=== PATIENT | female | born 1945 | race Caucasian/White ===

== ENCOUNTER 2021-11-20 07:07 | Observation (INO) ==
[2021-11-20] MEDS ORDERED: Lactated Ringers 1000 ml BAG 1,000 ML IV ONE (07:22)
[2021-11-20] MEDS ORDERED: Ondansetron 4 mg VIAL 2 MG/ML 2 ml VIAL IV ONE ×2 (07:23→10:22)
[2021-11-20 08:10] LABS: ABS Basophils 0.1 10^3/ul (0-0.2); ABS Eosinophils 0.2 10^3/ul (0-0.6); ABS Lymphocytes 1.1 10^3/ul (1.0-4.8); ABS Monocytes 0.9 10^3/ul (0-0.8); ABS Neutrophils 6.8 10^3/ul (1.5-7.7); Eosinophil % 1.8 %; Hematocrit 36 % (35-47); Hemoglobin 12.1 g/dL (12.0-16.0); Mean Corpuscular HGB Conc 34 g/dL (31-36); Mean Corpuscular Hemoglobin 30 pg (27-31); Mean Corpuscular Volume 88 fL (80-97); Mean Platelet Volume 7.4 fL (7.4-10.4); Platelet Count 213 10^3/uL (150-450); Red Cell Distribution Width 13 % (10-15)
[2021-11-20 08:48] LABS: Calcium 9.2 mg/dL (8.6-10.3); Magnesium 1.5 mg/dL (1.9-2.7); Potassium 3.7 mmol/L (3.5-5.0); eGFR CKD-EPI 88.1 (>60)
[2021-11-20] MEDS ORDERED: Iohexol 350 (CONTRAST) 500 ML MDV IV ONE (09:01)
[2021-11-20] MEDS ORDERED: Magnesium Sulfate 2 gm BAG 2 GM/50 ML BAG IVPB ONE (09:18)
[2021-11-20] MEDS ORDERED: Metoclopramide 5 MG/ML VIAL (10 mg) IV ONE (11:57)
[2021-11-20] MEDS: Metoclopramide 5 MG/ML VIAL (10 mg) IV PRN (20:38)
[2021-11-20] MEDS ORDERED: Enoxaparin 40 MG/0.4 ML SYR SUBCUT SCH (21:00)
[2021-11-21] MEDS: Metoclopramide 5 MG/ML VIAL (10 mg) IV PRN ×2 (01:21→10:20)
[2021-11-21 05:30] LABS: Calcium 8.9 mg/dL (8.6-10.3); Magnesium 1.9 mg/dL (1.9-2.7); Potassium 3.5 mmol/L (3.5-5.0); eGFR CKD-EPI 92.6 (>60)
[2021-11-21 08:29] LABS: Calcium 8.9 mg/dL (8.6-10.3); Potassium 3.7 mmol/L (3.5-5.0)
[2021-11-21] MEDS ORDERED: AZILSARTAN 80 MG PO SCH (09:00)
[2021-11-21 11:08] VITALS: BP 171/105
== END 2021-11-21 14:57 | disposition home or self-care (01) ==
LOC: ED 07:07 → EDHOLD 07:07 → MED 11-21 05:18
PROVIDERS: ADMIT Internal Medicine; ATTEND Internal Medicine